=== PATIENT | male | born 1990 | race Caucasian/White ===

== ENCOUNTER 2018-12-21 10:27 | Emergency (ER) | payer OTHER ==
--- NOTE | 2018-12-21 10:46 | EDPHY ---
H & P Stated Complaint: slipped at work wrenching r knee on 12/16/18 Time Seen by Provider: 12/21/18 10:46 - Personal History Current Tetanus Diphtheria and Acellular Pertussis (TDAP): Unsure - Medical/Surgical History Hx Asthma: Yes Hx Chronic Respiratory Disease: No Hx Diabetes: No Hx Cardiac Disease: No Hx Renal Disease: No Hx Cirrhosis: No Hx Alcoholism: No Hx HIV/AIDS: No Hx Splenectomy or Spleen Trauma: No Other PMH: r 5th digit surg asthma bilat mastectomy - Social History Smoking Status: Never smoked Constitutional: Initial Vital Signs Temperature (C) 37 C 12/21/18 10:36 Heart Rate 59 L 12/21/18 10:36 Respiratory Rate 18 12/21/18 10:36 Blood Pressure 122/58 H 12/21/18 10:36 O2 Sat (%) 95 12/21/18 10:36 O2 Delivery Mode Room Air Allergies/Adverse Reactions: No Known Allergies Allergy (Verified 12/21/18 10:34) Home Medications: Medication Instructions Recorded Albuterol 12/21/18 Prozac 10 MG (*) 12/21/18 Singulair 12/21/18 Testosterone 12/21/18 Medical Decision Making ED Course/Re-evaluation: CHIEF COMPLAINT: HISTORY OF PRESENT ILLNESS: must have 4 elements: Location, Quality, Severity , Duration, Timing, Context, Modifying Factors, Associated Signs and Symptoms REVIEW OF SYSTEMS: A comprehensive 10 system review of systems is otherwise negative aside from elements mentioned in the history of present illness and medical decision making. PHYSICAL EXAM: HR, BP, O2 Sat, RR. Temp noted General Appearance: Alert, well hydrated, appropriate, and non-toxic appearing. Head: Atraumatic without scalp tenderness or obvious injury Eyes: Pupils equal, round, reactive to light and accommodation, EOMI, no trauma , no injection. Ears: Clear bilaterally, no perforation, normal landmarks Nose: Atraumatic, no rhinorrhea, clear. Throat: There is no erythema or exudates, no lesions, normal tonsils, mucus membranes moist. Neck: Supple, 2+ carotid upstroke, nontender, no lymphadenopathy. Respiratory: No retractions, no distress, no wheezes, and no accessory muscle use. Lungs are clear to auscultation bilaterally. Cardiovascular: Regular rate and rhythm, no murmurs, rubs, or gallops. Bilateral carotid, radial, dorsalis pedis, and posterior tibial pulses intact. Good capillary refill all extremities. Gastrointestinal: Abdomen is soft, nontender, non-distended, no masses, no rebound, no guarding, no peritoneal signs. Musculoskeletal: Normal active ROM of all extremities, atraumatic. Neurological: Alert, appropriate, and interactive. The patient has normal DTRs and non-focal cranial nerves, motor, sensory, and cerebellar exam. Skin: No rashes, good turgor, no nodules on palpation. Past medical history: Past surgical history: Family history: Social history: DIAGNOSTICS/PROCEDURES/CRITICAL CARE TIME: DIFFERENTIAL DIAGNOSIS: MEDICAL DECISION MAKING: Departure - Departure Referrals: NONE *PRIMARY CARE P,. [Primary Care Provider] - As per Instructions
--- NOTE | 2018-12-21 10:53 | EDPHY ---
General Time Seen by Provider: 12/21/18 10:46 Narrative: CLINICAL IMPRESSION: Right knee pain ASSESSMENT/PLAN: Patient is a 28-year-old male with a history of asthma and depression who presents to the emergency department with right knee pain. Patient is in no acute distress, not toxic-appearing. Physical examination reveals generalized tenderness to palpation along the knee joint line both medially and laterally; no significant swelling or bruising, no appreciable laxity. X-ray revealed no acute fracture or dislocation; small effusion and possible acute on chronic patellar tendinitis. History of physical examination is consistent with a right knee pain with concern for either meniscus or ligamentous injury; no findings to suggest fracture, dislocation, septic joint, compartment syndrome or neurovascular compromise. Patient will follow up with his workman's Comp, orthopedic referral also provided. Return precautions discussed. ED PROCEDURES: Procedure: Knee immobilizer. A knee immobilizer was applied. After application I returned and re-examined the patient. The patient's circulation and sensation was intact. CHIEF COMPLAINT: Right knee pain HPI: Patient is a 28-year-old male with a history of asthma and depression who presents to the emergency department with right knee pain. 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 He immediately experienced pain and swelling, some radiation into the back of his knee and down his calf. He has been able to ambulate however is experiencing popping when he walks as well as increased pain. He did not fall to the ground, he denies any bruising, calf swelling, ankle or foot pain. He has been taking ibuprofen as well as icing and compressing with athletic tape and knee brace. He was seen and evaluated by his workman's Comp and sent here for further evaluation. Patient denies any other injury or complaint. ROS: Review of systems otherwise negative, please see HPI. PHYSICAL EXAM: General Appearance: Well-appearing, no acute distress. Respiratory: There are no retractions, lungs are clear to auscultation. Cardiac: Regular rate and rhythm, no murmurs or gallops. Upper Extremities: Intact distal pulses, Full range of motion intact, no tenderness, no ecchymosis or edema Lower Extremities: Left lower extremity is unremarkable. Intact distal pulses, No edema, No tenderness, No cyanosis, full range of motion intact, No calf tenderness bilaterally. Right knee with full range of motion. Patient is tender along the medial and lateral joint line. There is no appreciable anterior or posterior laxity, no medial or lateral laxity. There is no tenderness at the proximal fibular head. Right ankle and foot are nontender with full range of motion. Two point discrimination is intact distally. 2+ dorsalis pedis bilaterally. MEDICAL DECISION MAKING: Patient was seen independently. Secondary supervising physician at time of evaluation was Dr. Holguin, he did not evaluate this patient. Diagnosis: Right knee pain Summary: See Assessment and Plan for summary of ED visit Clinical lab tests: Not applicable. Independent visualization of images, tracing, or specimens: Yes. Decision to obtain medical records or history from someone other than the patient: No Review / Summarize previous medical records: Yes Discussed patient with another provider: Yes, Dr. Holguin Patient Progress: Stable, discharged. - Diagnostics Imaging Results: Imaging Impressions Knee X-Ray 12/21/18 11:04 Impression: 1. No acute fracture. Small effusion. 2. Query acute on chronic inflammation of the patellar tendon at the insertion on the tibial tuberosity. - History Smoking Status: Never smoked - Objective Vital Signs: Initial Vital Signs Temperature (C) 37 C 12/21/18 10:36 Heart Rate 59 L 12/21/18 10:36 Respiratory Rate 18 12/21/18 10:36 Blood Pressure 122/58 H 12/21/18 10:36 O2 Sat (%) 95 12/21/18 10:36 O2 Delivery Mode Room Air Allergies/Adverse Reactions: No Known Allergies Allergy (Verified 12/21/18 10:34) Home Medications: Medication Instructions Recorded Albuterol 12/21/18 Prozac 10 MG (*) 12/21/18 Singulair 12/21/18 Testosterone 12/21/18 Departure - Departure Disposition: Home, Routine, Self-Care Condition: Good Instructions: Knee Pain (ED) Additional Instructions: DISCHARGE INSTRUCTIONS FROM YOUR PROVIDER Thank you for visiting our emergency department today. Please keep in mind that discharge from the emergency department does not mean that there is nothing wrong - it simply means that we have not identified an emergency condition that requires further evaluation or treatment in the hospital. It is very important that you follow up with your workman's Comp facility. You have been given an orthopedic referral, call to schedule an appointment based on your workmen's Comp recommendations. Ice on and off to the affected knee. Elevate as much as possible. Wear the BRO wrap for compression to help decrease the swelling. Wear your knee immobilizer for the next few days for comfort and support. Limit weightbearing and walking and use your crutches as needed. You can walk and bear weight as tolerated. For pain control: You may take Tylenol, I recommend 500-1000 mg every 6-8 hours as needed. Take with food and a full glass of water. Stop taking if this is upsetting you stomach. Do not exceed 4000 mg in a 24 hr period. You may also take ibuprofen, recommend 400 mg every 6 hr. Take with food and a full glass of water. Stop taking if this upsets your stomach. Do not exceed 2400 mg in a 24 hr period. Call and schedule a follow-up re-evaluation appointment with your primary care physician in the next 3-7 days. As discussed, you may require further evaluation and/or treatment, ie: an MRI, physical therapy, and/or an orthopedic consultation-- all depending on your healing course. Orthopedic injuries you are at increased risk for developing a blood clot in your leg. Be sure to gently stretch your calf on and off throughout the day and seek follow-up care immediately for any calf pain, redness, swellling, ankle swelling, or other concerns. Return for increased or unmanageable pain, new injury, new site of pain, numbness, tingling, weakness of the leg, coolness or discoloration of the leg/ foot/ankle, redness, swelling, fever, difficulty breathing, chest pain, calf pain, ankle swelling, severe headache, back pain, or for any other new, worsening, or worrisome symptoms. People present with illnesses and injuries in different ways, and it is always possible that we have missed something. Again, thank you for choosing our emergency department. We hope that you feel better. Referrals: Eleanor Perez MD [Medical Doctor] - As per Instructions (Please establish care with a primary care provider if you do not have 1) Adan Mccollum MD [Medical Doctor] - 2-3 days, call for appt. NONE *PRIMARY CARE P,. [Primary Care Provider] - As per Instructions (Please follow-up with your workmen's Comp)
[2018-12-21 12:05] VITALS: BP 128/68
== END 2018-12-21 12:04 | disposition home or self-care (01) ==
LOC: EDSEX 10:27
DX: M25.561 Pain in right knee (principal); J45.909 Unspecified asthma, uncomplicated; F32.9 Major depressive disorder, single episode, unspecified; W18.40XA Slipping, tripping and stumbling without falling, unspecified, initial encounter; Y99.0 Civilian activity done for income or pay
CPT/HCPCS: L1830